=== PATIENT | female | born 1970 | race Caucasian/White ===

== ENCOUNTER 2017-08-23 08:05 | Day surgery (SDC) | payer OTHER ==
[~2017-08-23] VITALS: Ht 163.8 cm; Wt 67.1 kg
[~2017-08-23 08:05] MED LIST: PANT40TA2 PO
[2017-08-23] MEDS ORDERED: FAMOTIDINE 20MG/2ML IV (PEPCID) ONE (08:29)
[2017-08-23] MEDS ORDERED: FAMOTIDINE 20MG/2ML IV (PEPCID) IV ONE (08:30)
[2017-08-23] MEDS ORDERED: BUPIVACAINE 0.25% 30 ML (SENSORCAINE) VIAL ONE (08:33)
[2017-08-23] MEDS: LACTATED RINGERS 1,000 ML IV PRN ×2 (08:46→10:45)
[2017-08-23 08:52] VITALS: BP 118/74
[2017-08-23] MEDS ORDERED: LACTATED RINGERS 1,000 ML IV ONE ×2 (09:43→10:50)
[2017-08-23] MEDS ORDERED: proPOfol 200 MG/20 ML (DIPRIVAN) VIAL IV ONE (09:43)
[2017-08-23] MEDS ORDERED: ROCURONIUM 50 MG/5 ML (ZEMURON) VIAL IV ONE (09:43)
[2017-08-23] MEDS ORDERED: MIDAZOLAM 2 MG/2 ML (VERSED) VIAL ONE (09:44)
[2017-08-23] MEDS ORDERED: fentaNYL INJECTION 100 MCG/2 ML AMP ONE (09:44)
--- NOTE | 2017-08-23 09:45 | Progress Note-Pre Operative ---
Pre-Operative Progress Note H&P Reviewed The H&P was reviewed, patient examined and no changes noted. Date Seen by Provider: Aug 23, 2017 Time Seen by Provider: 09:35 Date H&P Reviewed: Aug 23, 2017 Time H&P Reviewed: 09:30 Pre-Operative Diagnosis: RLQ, history of ovarian cyst rupture. GABRIELA HENSON DO Aug 23, 2017 9:45 am
[2017-08-23] MEDS ORDERED: D5 LR IV SOLUTION 1,000 ML IV SCH (09:57)
--- NOTE | 2017-08-23 09:59 | Discharge Inst-Women's Service ---
Discharge Inst-Women's Serv Depart Medication/Instructions New, Converted or Re-Newed RX: RX on Chart Consults/Follow Up Additional Follow Up: Yes Orders/Referrals Dr. Helm in 1-2 weeks Activity Activity: Activity as Tolerated Driving Instructions: No Driving for 1 Week (do not drive while taking narocotic pain meds) NO SMOKING: NO SMOKING Nothing Inside Vagina: No Douching, No [place], No Tampons Diet Discharge Diet: No Restrictions Symptoms to Report to : Bleeding Excessive, Pain Increased, Fever Over 101 Degrees F, Vaginal Bleeding Increase, Questions/Concerns For Any Problems or Questions: Contact Your Physician Skin/Wound Care Infection Signs and Symptoms: Increased Redness, Foul Odor of Wound, Increased Drainage, Skin Itchy or Has a Rash, Increased Swelling, Temperature Above 101 F Operative Area Clean and Dry: Keep Incision Clean/Dry Stitches/[place]/Dermabond: Dermabond, Care of Stitches Bathing Instructions: GABRIELA Gilliam DO Aug 23, 2017 09:59
[2017-08-23] MEDS ORDERED: HYDROcodone/APAP 5 MG/325 MG (LORTAB) TAB PO PRN (10:00)
[2017-08-23] MEDS ORDERED: KETOROLAC 30 MG/ML VIAL IVP ONE (10:00)
[2017-08-23] MEDS ORDERED: IBUP-1773 PO (10:00)
[2017-08-23] MEDS ORDERED: HYDR-3812 PO (10:00)
[2017-08-23] MEDS ORDERED: ONDANSETRON 4 MG/2 ML (SDV) Z0FRAN IVP PRN ×2 (10:00→12:00)
[2017-08-23] MEDS ORDERED: morphine INJ 10 MG/ML 1ML (SYR OR VIAL) ONE (10:20)
[2017-08-23] MEDS ORDERED: KETOROLAC 30 MG/ML VIAL ONE (10:20)
[2017-08-23] MEDS ORDERED: DEXAMETHASONE 10 MG/ML (DECADRON) 1 ML VIAL ONE (10:49)
[2017-08-23] MEDS ORDERED: ONDANSETRON 4 MG/2 ML (SDV) Z0FRAN ONE (10:49)
[2017-08-23] MEDS ORDERED: SEVOFLURANE (ULTANE) 15 ML INHAL SOLN ONE (10:49)
[2017-08-23] MEDS ORDERED: NEOSTIGMINE (BLOXIVERZ ) 1 MG/1ML 10 ML VIAL ONE (10:50)
[2017-08-23] MEDS ORDERED: GLYCOPYRROLATE 0.2 MG/ML (ROBINUL) 2 ML VIAL ONE (10:50)
[2017-08-23] MEDS ORDERED: CATHETER FLUSH 10 ML SYR IV PRN (11:00)
[2017-08-23] MEDS ORDERED: metroNIDAZOLE 500MG/100ML IVPB 100 ML IV ONE (11:00)
--- NOTE | 2017-08-23 11:27 | Progress Note-Post Operative ---
Post-Operative Progess Note Surgeon (s)/Retail Coordinator (s) Surgeon GABRIELA HENSON DO Retail Coordinator: Raina Thorpe Pre-Operative Diagnosis RLQ, history of ovarian cyst rupture. Post-Operative Diagnosis same, Moderately inflamed appendix Adhesion of appy to right IP/Ovary Procedure & Operative Findings Date of Procedure 08/23/17 Procedure Performed/Findings Laparoscopic bilateral salpingectomy, right oophorectomy, appendectomy Anesthesia Type GETA Estimated Blood Loss Estimated blood loss (mL): min Specimens/Packing Specimens Removed bilateral tubes, right ovary and appendix GABRIELA HENSON DO Aug 23, 2017 11:27 am
[2017-08-23] MEDS: morphine INJ 10 MG/ML 1ML (SYR OR VIAL) IVP PRN ×2 (11:50→11:56)
[2017-08-23] MEDS ORDERED: IBUPROFEN 600 MG (MOTRIN) TAB PO SCH (12:00)
[2017-08-23 12:25] VITALS: BP 115/66
[2017-08-23 12:55] VITALS: BP 98/69
[2017-08-23 13:15] VITALS: BP 104/68
[2017-08-23 13:25] VITALS: BP 104/68
--- NOTE | 2017-08-23 15:00 | OPERATIVE REPORT ---
DATE OF SERVICE: 08/23/2017 PREOPERATIVE DIAGNOSIS: Right lower quadrant pain. POSTOPERATIVE DIAGNOSIS: Right lower quadrant pain, plus adhesions on the right ovary to the pelvic sidewall and adhesion of the appendix to the infundibulopelvic ligament and right ovary. PROCEDURE: Laparoscopic bilateral salpingectomy, right oophorectomy and appendectomy performed by Dr. Pelayo. SURGEON: Dr. Ace Helm. STEAM PLANT CONTROL ROOM OPERATOR: BESS David. SECONDARY SURGEON INTRAOPERATIVE CONSULTATION: Dr. Vadim Pelayo. ANESTHESIA: General endotracheal. ESTIMATED BLOOD LOSS: Minimal. URINE OUTPUT: 100 mL during the procedure. FLUIDS: 1200 mL of lactated Ringer's solution. FINDINGS: Grossly normal left ovary, bilateral fallopian tubes. There is evidence of previous tubal ligation, right ovary which is adhesed to pelvic sidewall, as well as evidence of scarring of the right ovary to the infundibulopelvic ligament and the appendix, which is scarred in the same adnexal complex. There is some erythema and a mild amount of dilation of the distal appendix. INDICATION FOR PROCEDURE: This 47-year-old female was a self consultation to my office for ongoing issues with right lower quadrant pain that brought her into the Emergency Department. The patient underwent imaging which showed a small cyst in the right ovary, nothing that would indicate surgery from that standpoint; however, she did give a history of multiple pelvic surgeries undergone including a ruptured right hemorrhagic ovarian cyst, as well as a history of a right ectopic . Due to the possibility of underlying adhesions causing this pain, I discussed with the patient performing a diagnostic laparoscopy as imaging studies have been limited in giving us any answers for her pain. Risks of the procedure was discussed with the patient including the risk of bleeding, infection, damage to any surrounding structures including but not limited bowel, bladder, ureter, kidneys, risks for need for blood transfusion, need for operation and even were all discussed with the patient. After all of her questions were answered, consent was obtained in the preoperative area with her present, and the patient was taken to the operating room. DESCRIPTION OF PROCEDURE: Once in the operating room general anesthesia was found to be adequate. She was placed in the dorsal lithotomy position, prepped and draped in the normal sterile fashion. She was first examined under anesthesia. The uterus was mildly enlarged, freely mobile. It was difficult to palpate the ovaries on bimanual examination. Luque catheter was placed using sterile technique. A weighted speculum was then inserted in to the patient's vagina. A right angle retractor was used to visualize the cervix which was grasped at the 12 o'clock position using a long Allis clamp. The uterine cavity was then sounded and found to be 8 cm. I then placed a Kronner uterine manipulator at 8 cm cavity depth and deployed the balloon intrauterine and excellent uterine manipulation was noted after doing this. I then performed a change of gloves and took all the instruments out of the patient's vagina other than the Kronner uterine manipulator. I took my attention to the abdomen where infraumbilically I infiltrated this area using 0.25% Marcaine to make a 5 mm incision. I then directed the Veress needle through this incision until intraperitoneal placement was confirmed using the saline drop test. I proceeded with insufflation using CO2 gas and an opening pressure of 5 mmHg was noted. I proceeded to a maximum pressure of 15 mmHg, at which point I removed with Veress needle and introduced an 8 mm blunt da Matty camera trocar. Once this was in place, I was able to confirm all intraperitoneal findings after the patient was placed in steep Trendelenburg. The findings are listed above in my findings. I then placed in the patient a second trocar in the left lower quadrant. This was a 5 mm trocar and suprapubically I placed a 12 mm trocar in the similar fashion. Once these were in place, I began taking down the fallopian tubes starting proximally at insertion isthmic portion of the tube and took it distally to the ampullary portion of the tube using LigaSure device to bipolar cauterize and transect as I go. I then identified the right infundibulopelvic ligament. I had to take down some adhesions of the appendix to this but once they were taken down I grasped the IP using the LigaSure and bipolar cauterized and transected using the LigaSure. The mesovarium was taken down in a similar fashion and the utero-ovarian ligament was last to be encountered, but it was taken down using the LigaSure as well. This was placed in the posterior cul-de-sac for later removal as I took my attention to the appendix which appeared to be moderately inflamed and a small amount of dilation at the tip I then intraoperative counseled Dr. Pelayo who came in and performed an appendectomy. I then placed an endopouch bag through my suprapubic port and placed the appendix, bilateral tubes and ovaries in this endopouch bag and removed the 12 mm port without any difficulty. There was no active bleeding noted from any of my dissection planes or Dr. Pelayo's dissection planes after this was performed. I copiously irrigated the pelvis using normal saline. There was 500 mg of Flagyl given intraoperatively for infection prophylaxis due to removal of a bowel structure, after which I removed the smaller 5 mm trocar sites under direct visualization with the laparoscope. There was no active bleeding from these trocar sites. I left the 12 in to release insufflation and had the patient taken out of steep Trendelenburg. I then removed the trocar as well and closed the fascia with a larger trocar that was suprapubic using 0 Vicryl suture in an interrupted fashion. The skin was reapproximated using 4-0 Monocryl and interrupted subcuticular stitches. Dermabond was applied to all three incisions and Band-Aids were placed over this. The Kronner uterine manipulator and Luque catheter was removed. Band-Aids were placed over the incisions. The patient tolerated the procedure well and was sent to recovery in stable condition. Lap and sponge counts were correct at the end of the procedure. Instrument counts were correct as well. Job ID: [id number] DocumentID: [id number] Dictated Date: 08/23/2017 11:40:26 Bunch Maker Hand Date: 08/23/2017 14:59:34 Dictated By: ACE HELM DO MTDMaria Isabel
--- NOTE | 2017-08-23 15:17 | OPERATIVE REPORT ---
DATE OF SERVICE: 08/23/2017 PREOPERATIVE DIAGNOSES: Right lower quadrant pain, appendiceal erythema and a thickened distal tip. POSTOPERATIVE DIAGNOSES: Right lower quadrant pain, appendiceal erythema and a thickened distal tip, pending pathology. PROCEDURE: Laparoscopic appendectomy. SURGEON: Dr. Pelayo. SPANISH TEACHER: None. ANESTHESIA: General endotracheal tube. SPECIMEN: Appendix. BLOOD LOSS: Scant. FLUIDS: Per anesthesia. INDICATION FOR PROCEDURE: The patient is actually a 39-year-old female. Had an intraoperative consult by Dr. Helm regarding the appendix. He reports to me that she had had long-term right lower quadrant pain and he was taking out the ovary, had already removed it, and found that the appendix was very stuck down in the pelvis, also looked a little bit erythematous and possibly a thickened distal tip and he thought it probably needed to come out and therefore called me to take a look. I did agree with him that it was a little bit erythematous and the tip was a little bit thickened, plus because of the right lower quadrant pain so she would not have to come back in or at least known now it could be her appendix causing the problem. I elected to take out the appendix. FINDINGS: The patient had the appendix removed without any difficulty. PROCEDURE NOTE: The patient was already in the operating room, called in for intraoperative consult. There were already [address], able to grasp the appendix with a [place] and then come across the mesoappendix with the LigaSure, clamping, coagulating and transecting in this fashion step-estrella working through the mesoappendix, taking down the appendiceal artery and then freeing the appendix up so it was just attached to the cecum. Once this was done, switched to place the Endo-CYNTHIA into the abdomen, placed across the base of the appendix right at the cecum, clamped and then transected, placed the staple line and then removed this Endo-CYNTHIA. Then placed the appendix into a bag and then Dr. Helm put the ovary in the bag and then removed them both through the suprapubic port. At this time I then scrubbed out with the appendix out, Dr. Helm to finish this case. Job ID: [id number] DocumentID: [id number] Dictated Date: 08/23/2017 12:00:13 Clinical Nursing Manager Date: 08/23/2017 15:17:34 Dictated By: CRISTIAN PELAYO DO
== END 2017-08-23 13:25 | disposition home or self-care (01) ==
LOC: SDC 08:05
PROVIDERS: ATTEND Obstetrics & Gynecology
DX: N73.6 Female pelvic peritoneal adhesions (postinfective) (principal); K38.9 Disease of appendix, unspecified; N83.8 Other noninflammatory disorders of ovary, fallopian tube and broad ligament; N80.2 Endometriosis of fallopian tube; N83.201 Unspecified ovarian cyst, right side; K44.9 Diaphragmatic hernia without obstruction or gangrene; K21.9 Gastro-esophageal reflux disease without esophagitis; Z87.59 Personal history of other complications of pregnancy, childbirth and the puerperium
CPT/HCPCS: 36415; 84703; 86850; 86900; 86901; 87081; 94664

== ENCOUNTER → 2019-08-11 | Outpatient (CLI) | payer OTHER ==
[~2019-08-11] MED LIST changes: +ACHD5005 PO; +IBUP-1773 PO
--- NOTE | 2019-08-11 10:04 | Diagnostic Imaging Report ---
INDICATION: Injury to right hand. AP, oblique, and lateral views of the right hand are obtained. FINDINGS: No fracture or acute bony abnormality is seen. There is mild degenerative change of the first MCP joint and carpometacarpal joint. Remaining structures are unremarkable otherwise. IMPRESSION: Mild degenerative findings in the first MCP joint and carpometacarpal joint. No acute bony abnormality. Dictated by: Dictated on workstation # [id number]
== END ==
LOC: RAD FS 09:46
PROVIDERS: ATTEND Nurse Practitioner Family
DX: S69.91XA Unspecified injury of right wrist, hand and finger(s), initial encounter (principal); M19.041 Primary osteoarthritis, right hand
CPT/HCPCS: 73130

== ENCOUNTER 2020-06-06 10:13 | Emergency (ER) | payer OTHER ==
[~2020-06-06] VITALS: Ht 165 cm; Wt 67.1 kg
--- OUTSIDE RECORDS SUMMARY | 2020-06-06 10:18 | XMS REPORT | Continuity of Care Document ---
Author Organization Unknown Address Unknown Phone Unavailable Allergies Active Description Code Type Severity Reaction Onset Reported/Identified Relationship to Patient Clinical Status Yes Amoxicillin Drug Allergy N/A N/A 08/15/2013 Yes Erythromycin Base Drug Allergy N/A N/A 08/15/2013 Yes Keflex Drug Allergy N/A N/A 08/15/2013 Yes cephalexin [id number] Drug Allerg y Severe ANAPHYLAXIS 08/20/2017 Yes amoxicillin [id number] Drug Aller gy Moderate RASH 08/20/2017 Yes erythromycin base [id number] Drug Allergy Moderate N/V 08/20/2017 Medications There is no data. Problems Date Dx Coded Attending Type Code Diagnosis Diagnosed By 08/15/2013 ZOHREH COOPER DO 789.00 ABDOMINAL PAIN UNSPECIFIED SITE 08/23/2017 GABRIELA HENSON DO Ot K21.9 GASTRO-ESOPHAGEAL REFLUX DISEASE WITHOUT 08/23/2017 GABRIELA HENSON DO Ot K38.9 DISEASE OF APPENDIX, UNSPECIFIED 08/23/2017 GABRIELA HENSON DO, Ot K44.9 DIAPHRAGMATIC HERNIA WITHOUT OBSTRUCTION 08/23/2017 GABRIELA HENSON DO Ot N73.6 FEMALE PELVIC PERITONEAL ADHESIONS (POST 08/23/2017 GABRIELA HENSON DO Ot N80.2 ENDOMETRIOSIS OF FALLOPIAN TUBE 08/23/2017 GABRIELA HENSON DO Ot N83.201 UNSPECIFIED OVARIAN CYST, RIGHT SIDE 08/23/2017 GABRIELA HENSON DO Ot N83.8 OTH NONINFLAMMATORY DISORD OF OVARY, FAL 08/23/2017 GABRIELA HENSON DO Ot Z87.59 PERSONAL HISTORY OF COMP OF PREG, CHLDBR 08/27/2017 GABRIELA HENSON DO Ot K21.9 GASTRO-ESOPHAGEAL REFLUX DISEASE WITHOUT 08/27/2017 GABRIELA HENSON DO Ot K38.9 DISEASE OF APPENDIX, UNSPECIFIED 08/27/2017 GABRIELA HENSON DO Ot K44.9 DIAPHRAGMATIC HERNIA WITHOUT OBSTRUCTION 08/27/2017 GABRIELA HENSON DO Ot 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.6 FEMALE PELVIC PERITONEAL ADHESIONS (POST 08/27/2017 FENECH DO, GABRIELA S Ot N80.2 ENDOMETRIOSIS OF FALLOPIAN TUBE 08/27/2017 FENECH DO, GABRIELA S Ot N83.201 UNSPECIFIED OVARIAN CYST, RIGHT SIDE 08/27/2017 FENECH DO, GABRIELA S Ot N83.8 OTH NONINFLAMMATORY DISORD OF OVARY, FAL 08/27/2017 FENECH DO, GABRIELA S Ot Z87.59 PERSONAL HISTORY OF COMP OF PREG, CHLDBR 08/29/2017 FENECH DO, GABRIELA S Ot K21.9 GASTRO-ESOPHAGEAL REFLUX DISEASE WITHOUT 08/29/2017 FENECH DO, GABRIELA S Ot K38.9 DISEASE OF APPENDIX, UNSPECIFIED 08/29/2017 FENECH DO, GABRIELA S Ot K44.9 DIAPHRAGMATIC HERNIA WITHOUT OBSTRUCTION 08/29/2017 FENECH DO, GABRIELA S Ot N73.6 FEMALE PELVIC PERITONEAL ADHESIONS (POST 08/29/2017 FENECH DO, GABRIELA S Ot N80.2 ENDOMETRIOSIS OF FALLOPIAN TUBE 08/29/2017 FENECH DO, GABRIELA S Ot N83.201 UNSPECIFIED OVARIAN CYST, RIGHT SIDE 08/29/2017 FENECH DO, GABRIELA S Ot N83.8 OTH NONINFLAMMATORY DISORD OF OVARY, FAL 08/29/2017 FENECH DO, GABRIELA S Ot Z87.59 PERSONAL HISTORY OF COMP OF PREG, CHLDBR 09/17/2017 FENECH DO, GABRIELA S Ot K21.9 GASTRO-ESOPHAGEAL REFLUX DISEASE WITHOUT 09/17/2017 FENECH DO, GABRIELA S Ot K38.9 DISEASE OF APPENDIX, UNSPECIFIED 09/17/2017 FENECH DO, GABRIELA S Ot K44.9 DIAPHRAGMATIC HERNIA WITHOUT OBSTRUCTION 09/17/2017 FENECH DO, GABRIELA S Ot N73.6 FEMALE PELVIC PERITONEAL ADHESIONS (POST 09/17/2017 FENECH DO, GABRIELA S Ot N80.2 ENDOMETRIOSIS OF FALLOPIAN TUBE 09/17/2017 FENECH DO, GABRIELA S Ot N83.201 UNSPECIFIED OVARIAN CYST, RIGHT SIDE 09/17/2017 FENECH DO, GABRIELA S Ot N83.8 OTH NONINFLAMMATORY DISORD OF OVARY, FAL 09/17/2017 FENECH DO, GABRIELA S Ot Z87.59 PERSONAL HISTORY OF COMP OF PREG, CHLDBR 08/13/2019 LIBIA NOYOLA PADDLE DYEING MACHINE OPERATOR Ot M19.041 PRIMARY OSTEOARTHRITIS, RIGHT HAND 08/13/2019 LIBIA NOYOLA PADDLE DYEING MACHINE OPERATOR Ot S69.91XA UNSP INJURY OF RIGHT WRIST, HAND AND FIN Procedures Code Description [place] [address] UA L MARY DIP 08/15/2013 61785 CULT URE URINE 08/15/2013 Results Test Result Range Urine beta human chorionic gonadotropin (hCG) measurement - 08/23/17 08:15 Urine beta human chorionic gonadotropin (hCG) measurem ent NEGATIVE NEGATIVE Methicillin resistant Staphylococcus aur eus (MRSA) screening culture - 08/23/17 08:30 Methicillin resistant Staphylococcus aureus (MRSA) scr eening culture NEG NRG Blood type T Indirect antibody screen pa praneeth - 08/23/17 08:39 ABO+Rh group AP NRG Transfusion band number [id number] NRG Blood group antibody screen NEGATIVE NR G Encounters ACCT No. Visit Date/Time Discharge Status Pt. Type Provider Facility Loc./Unit Complaint [id number] 08/15/2013 12:15:00 08/15/2013 23:59: 59 CLS Outpatient ZOHREH COOPER DO [id number] 08/11/2019 09:46:00 019 23:59:59 CLS Outpatient LIBIA NOYOLA PADDLE DYEING MACHINE OPERATOR [facility] RAD FS M79.641 [id number] 08/23/2017 08:05:00 017 13:25:00 DIS Outpatient GABRIELA HENSON DO [facility] SDC RIGHT LOWER QUADRANT PA IN [id number] 08/20/2017 10:00:00 017 23:59:59 CLS Preadmit GABRIELA HENSON DO [facility] PREOP RIGHT LOWER QUAD PAIN
[2020-06-06] MEDS ORDERED: LACTATED RINGERS 1,000 ML IV ONE (10:50)
[2020-06-06 11:00] LABS: BILIRUBIN,URINE NEGATIVE (NEGATIVE); CLARITY,URINE CLEAR; COLOR,URINE YELLOW; GLUCOSE, URINE (UA) NEGATIVE (NEGATIVE); KETONES,URINE NEGATIVE (NEGATIVE); LEUKOCYTE ESTERASE ,URINE NEGATIVE (NEGATIVE); NITRITE,URINE NEGATIVE (NEGATIVE); PH,URINE 5.5 (5-9); PROTEIN,URINE NEGATIVE (NEGATIVE)
[2020-06-06] MEDS ORDERED: ONDANSETRON 4 MG/2 ML (SDV) Z0FRAN IVP ONE (11:00)
--- NOTE | 2020-06-06 11:02 | ED GI ---
General Chief Complaint: Abdominal/GI Problems Stated Complaint: CONSTIPATION/BACK PAIN Nursing Triage Note: PT PRESENTS TO ED WITH COMPLAINTS OF R LEG NUMBNESS AND CONSTIPATION. PT REPORTS LAST BM ON 06/01/20. PT REPORTS MAG CITRATE AND 3 ENEMAS SINCE SUNDAY. Sepsis Screen: No Definite Risk Source of Information: Patient History of Present Illness Date Seen by Provider: Jun 06, 2020 Time Seen by Provider: 10:40 Initial Comments PT ARRIVES VIA POV FROM HOME--LIVES IN [place], [place] C/O CONSTIPATION AND THINKS SHE HAS AN IMPACTION--HAS NOT HAD A BM IN A WEEK STATES SINCE Sunday06/03/20, SHE HAS DRANK 1 BOTTLE OF MAG CITRATE, AND USED A TOTAL OF 3 ENEMAS--ONLY PASSED VERY SMALL AMOUNTS OF STOOL C/O DIFFUSE LOWER ABDOMINAL DISCOMFORT C/O NAUSEA, NO VOMITING--HAS BEEN EATING AND DRINKING NORMALLY C/O LOWER BACK PAIN--STATES IT FEELS LIKE IT IS PRESSING ON HER SCIATIC NERVES, AND HAS PAIN DOWN THE BACK OF BOTH LEGS, AND TODAY HER RIGHT LEG FEELS NUMB AND TINGLY NO SADDLE ANESTHESIAS NO PROBLEMS URINATING C/O RIGHT FLANK PAIN WELL. NO FEVER NO RECTAL BLEEDING HAS HAD SIMILAR, JUST NEVER THIS BAD--HAS CHRONIC CONSTIPATION, BUT DOES NOT TAKE ANYTHING FOR IT HAS HAD PREVIOUS HEMORRHOIDECTOMY AND HAS BEEN DX WITH RECTOCOELE, BUT NO SURGICAL REPAIR OF RECTOCOELE--SAW A COLORECTAL SPECIALIST IN 3-4 YRS AGO. LATER STATES SHE HAS HAD TESTING FOR GASTRIC AND GI TRANSIT TIMES AND STATES THAT IT WAS VERY SLOW TRANSIT TIME. HAS CHRONIC BACK PAIN WELL. PT DOES NOT TAKE ANY MEDICATIONS LMP 05/29/20. S/P BTL PCP: CHAVO MORENO Allergies and Home Medications Allergies Coded Allergies: cephalexin (Verified Allergy, Severe, ANAPHYLAXIS, 08/20/17) amoxicillin (Verified Allergy, Intermediate, RASH, 08/20/17) erythromycin base (Verified Allergy, Intermediate, N/V, 08/20/17) Home Medications Hydrocodone Bit/Acetaminophen 1 Each Tablet, 1 TAB PO Q4H PRN for PAIN-MODERATE Prescribed by: GABRIELA HENSON on 08/23/17 1000 Ibuprofen 600 Mg Tablet, 600 MG PO Q6HR Prescribed by: GABRIELA HENSON on 08/23/17 1000 Ketorolac Tromethamine 10 Mg Tablet, 10 MG PO Q6H Prescribed by: LENNY GARRIDO on 06/06/20 1331 Ondansetron 4 Mg Tab.rapdis, 4 MG PO Q4H Prescribed by: LENNY GARRIDO on 06/06/20 1331 Pantoprazole Sodium 40 Mg Tablet.dr, 40 MG PO DAILY, (Reported) Patient Home Medication List Home Medication List Reviewed: Yes Review of Systems Review of Systems Constitutional: no symptoms reported; No chills, No diaphoresis, No dizziness, No fever EENTM: No Symptoms Reported Respiratory: No Symptoms Reported Cardiovascular: No Symptoms Reported Gastrointestinal: See HPI, Abdominal Pain, Constipated; Denies Diarrhea; Nausea; Denies Poor Appetite, Denies Rectal Bleeding, Denies Vomiting Genitourinary: No Symptoms Reported Musculoskeletal: see HPI, back pain Skin: no symptoms reported Psychiatric/Neurological: See HPI, Paresthesia, Tingling; Denies Weakness Endocrine: No Symptoms Reported Hematologic/Lymphatic: No Symptoms Reported Past Vqcohoq-Lsktrm-Nkfymm Hx Past Med/Social Hx: Reviewed and Corrections made Patient Social History Alcohol Use: Occasionally Uses Recreational Drug Use: No Smoking Status: Never a Smoker Recent Foreign Travel: No Contact w/Someone Who Travel: No Recent Infectious Disease Expo: No Recent Hopitalizations: No Physical Abuse: No Sexual Abuse: No Mistreated: No Fear: No Seasonal Allergies Seasonal Allergies: Yes (MILD) Past Medical History Surgeries: Yes (R SHOULDER, HEMORRHOIDECTOMY, R SALPINGO-OOPORECTOMY;R BREAST BX) Appendectomy, Breast, Oophorectomy, Orthopedic, Rectal, Tubal Ligation Respiratory: No 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) Irregular Heartbeat Neurological: Yes Headaches /Migraines Reproductive Disorders: Yes (R SALPINGO-OOPHORECTOMY) Female Reproductive Disorders: Menstrual Problems, 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, 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: Tubal Ligation Sexually Transmitted Disease: No HIV/AIDS: No Genitourinary: No Gastrointestinal: Yes (RECTOCOELE) Gastroesophageal Reflux, Chronic Constipation, Hemorrhoids, Hiatal Hernia Musculoskeletal: Yes (R SHOULDER SURGERY) Arthritis, Chronic Back Pain Endocrine: No Loss of Vision: Bilateral Hearing Impairment: Denies Cancer: No Psychosocial: No Integumentary: No Blood Disorders: No Adverse Reaction/Blood Tranf: No Physical Exam Vital Signs Vital Signs - First Documented 06/06/20 10:36 Temp 36.6 Pulse 81 Resp 20 B/P (MAP) 114/83 (93) Pulse Ox 99 Capillary Refill : Less Than 3 Seconds Height/Weight/BMI Height: 5'4.50" Weight: 148lbs. 0.0oz. [id number]; 24.00 BMI Method: General Appearance: WD/WN, no apparent distress Neck: normal inspection Respiratory: normal breath sounds, no respiratory distress, no accessory muscle use Cardiovascular: regular rate, rhythm, no murmur Gastrointestinal: normal bowel sounds, soft, no organomegaly, no pulsatile mass; No distended, No guarding, No rebound; tenderness (MILD SUPRAPUBIC TENDERNESS); No hernia Extremities: normal inspection Back: CVA tenderness (R), other (MID DIFFUSE LOWER BACK TENDERNESS. 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, no motor/sensory deficits, alert, normal mood/affect, oriented x 3 Skin: normal color, warm/dry Progress/Results/Core Measures Results/Orders Lab Results Laboratory Tests Test 06/06/20 10:49 06/06/20 11:14 Range/Units Urine Color YELLOW Urine Clarity CLEAR Urine pH 5.5 5-9 Urine Specific [place] 1.025 H 1.016-1.022 Urine Protein NEGATIVE NEGATIVE Urine Glucose (UA) NEGATIVE NEGATIVE Urine Ketones NEGATIVE NEGATIVE Urine Nitrite NEGATIVE NEGATIVE Urine Bilirubin NEGATIVE NEGATIVE Urine Urobilinogen 0.2 < = 1.0 MG/DL Urine Leukocyte Esterase NEGATIVE NEGATIVE Urine RBC (Auto) NEGATIVE NEGATIVE Urine RBC NONE /HPF Urine WBC NONE /HPF Urine Squamous Epithelial Cells 2-5 /HPF Urine Crystals NONE /LPF Urine Bacteria NEGATIVE /HPF Urine Casts NONE /LPF Urine Mucus NEGATIVE /LPF Urine Culture Indicated NO Urine Test NEGATIVE NEGATIVE White Blood Count 5.7 4.3-11.0 10^3/uL Red Blood Count 4.57 4.35-5.85 10^6/uL Hemoglobin 13.6 11.5-16.0 G/DL Hematocrit 41 35-52 % Mean Corpuscular Volume 89 80-99 FL Mean Corpuscular Hemoglobin 30 25-34 PG Mean Corpuscular Hemoglobin Concent 33 32-36 G/DL Red Cell Distribution Width 13.0 10.0-14.5 % Platelet Count 293 130-400 10^3/uL Mean Platelet Volume 10.9 H 7.4-10.4 FL Neutrophils (%) (Auto) 50 42-75 % Lymphocytes (%) (Auto) 35 12-44 % Monocytes (%) (Auto) 11 0-12 % Eosinophils (%) (Auto) 3 0-10 % Basophils (%) (Auto) 1 0-10 % Neutrophils # (Auto) 2.9 1.8-7.8 X 10^3 Lymphocytes # (Auto) 2.0 1.0-4.0 X 10^3 Monocytes # (Auto) 0.6 0.0-1.0 X 10^3 Eosinophils # (Auto) 0.2 0.0-0.3 10^3/uL Basophils # (Auto) 0.1 0.0-0.1 10^3/uL Sodium Level 139 135-145 MMOL/L Potassium Level 3.8 3.6-5.0 MMOL/L Chloride Level 106 98-107 MMOL/L Carbon Dioxide Level 23 21-32 MMOL/L Anion Gap 10 5-14 MMOL/L Blood Urea Nitrogen 8 7-18 MG/DL Creatinine 0.83 0.60-1.30 MG/DL Estimat Glomerular Filtration Rate > 60 BUN/Creatinine Ratio 10 Glucose Level 90 70-105 MG/DL Calcium Level 9.0 8.5-10.1 MG/DL Corrected Calcium 9.0 8.5-10.1 MG/DL Magnesium Level 2.0 1.6-2.4 MG/DL Total Bilirubin 0.8 0.1-1.0 MG/DL Aspartate Amino Transf (AST/SGOT) 18 5-34 U/L Alanine Aminotransferase (ALT/SGPT) 20 0-55 U/L Alkaline Phosphatase 49 40-136 U/L Total Protein 7.4 6.4-8.2 GM/DL Albumin 4.0 3.2-4.5 GM/DL Amylase Level 45 25-125 U/L Lipase 10 8-78 U/L My Orders Orders - LENNY GARRIDO DO Ed Iv/Invasive Line Start (06/06/20 10:50) Urine Bedside (06/06/20 10:50) Amylase (06/06/20 10:50) Cbc With Automated Diff (06/06/20 10:50) Comprehensive Metabolic Panel (06/06/20 10:50) Lipase (06/06/20 10:50) Magnesium (06/06/20 10:50) Ua Culture If Indicated (06/06/20 10:50) Ed Iv/Invasive Line Start (06/06/20 10:50) Lactated Ringers (Lr 1000 Ml Iv Solution (06/06/20 10:50) Ondansetron Injection (Zofran Injectio (06/06/20 11:00) Hcg,Qualitative Urine (06/06/20 10:55) Ct Abdomen/Pelvis W (06/06/20 11:46) Acute Abd Series (06/06/20 11:46) Ketorolac Injection (Toradol Injection) (06/06/20 12:00) Ct Lumbar Spine Wo (06/06/20 11:50) Iohexol Injection (Omnipaque 350 Mg/Ml 1 (06/06/20 12:45) Received Contrast (Hold Metformin- Contr (06/06/20 12:45) Ns (Ivpb) (Sodium Chloride 0.9% Ivpb Bag (06/06/20 12:45) Medications Given in ED Vital Signs/I&O 06/06/20 06/06/20 10:36 13:39 Temp 36.6 Pulse 81 77 Resp 20 20 B/P (MAP) 114/83 (93) 114/76 Pulse Ox 99 100 2 Blood Pressure Mean: 93 Progress Progress Note : Progress Note UNEVENTFUL ER STAY SYMPTOMS IMPROVED AT DISMISSAL--NAUSEA AND PAIN ARE COMPLETELY GONE. Diagnostic Imaging Comments CT ABDOMEN/PELVIS--PER RADIOLOGIST REPORTS AT 1315 Discussion: The lung bases are well-aerated. Normal heart size. No pleural or pericardial fluid. The liver, gallbladder, pancreas, stomach, spleen, and adrenal glands are unremarkable. No renal stone or hydronephrosis identified. Ureters are patent on delayed images. Urinary bladder and uterus are unremarkable. No significant constipation. No obstruction, pneumatosis, pneumoperitoneum. No ascites or pathologically enlarged lymph nodes identified. The aorta is normal in caliber. No osseous abnormality identified. Impression: 1. No acute abnormality identified within either the abdomen or pelvis. CT LUMBAR SPINEImpression: 1. Disc degenerative changes of the lumbar spine most notable at L4-L5. CT is limited for assessment of disc pathology as well as for evaluation of nonbony causes of foraminal and spinal stenosis. 2. No identified compression deformity or other fracture. 3. Normal alignment of the lumbar spine. ABDOMEN XRAYS--NO ACUTE PROCESS Reviewed: Reviewed by Departure Impression Primary Impression: Constipation Additional Impression: Lower back pain Disposition: HOME, SELF-CARE Condition: Improved Departure-Patient Inst. Referrals: [facility] (PCP) Primary Care Physician LIBIA NOYOLA APRN (Family) Primary Care Physician Patient Instructions: Constipation, Adult (DC), Low Back Pain (DC) Add. Discharge Instructions: INCREASE YOUR CLEAR LIQUIDS INCREASE FIBER IN YOUR DIET TAKE MIRALAX EVERY 1-2 HOURS UNTIL YOUR STOOLS ARE LOOSE, THEN DECREASE TO ONCE OR TWICE A DAY, TOLERATED FOLLOW UP WITH YOUR DR NEXT WEEK FOR FURTHER CARE All discharge instructions reviewed with patient and/or family. Voiced understanding. Scripts Ketorolac Tromethamine (Ketorolac Tromethamine) 10 Mg Tablet 10 MG PO Q6H for Pain, #15 TAB Prov: LENNY GARRIDO DO 06/06/20 Ondansetron (Ondansetron Odt) 4 Mg Tab.rapdis 4 MG PO Q4H for Nausea/Vomiting, #10 TAB Prov: LENNY GARRIDO DO 06/06/20 LENNY GARRIDO DO Jun 06, 2020 11:02
[2020-06-06 11:06] LABS: BACTERIA,URINE NEGATIVE /HPF
[2020-06-06 11:23] LABS: BASOPHILS # (AUTO) 0.1 10^3/uL (0.0-0.1); BASOPHILS % (AUTO) 1 % (0-10); EOSINOPHILS # (AUTO) 0.2 10^3/uL (0.0-0.3); EOSINOPHILS % (AUTO) 3 % (0-10); HEMATOCRIT 41 % (35-52); HEMOGLOBIN 13.6 G/DL (11.5-16.0); LYMPHOCYTES % (AUTO) 35 % (12-44); MEAN CORPUSCULAR HEMOGLOBIN 30 PG (25-34); MEAN CORPUSCULAR HGB CONC 33 G/DL (32-36); MEAN CORPUSCULAR VOLUME 89 FL (80-99); MEAN PLATELET VOLUME 10.9 FL (7.4-10.4); MONOCYTES # (AUTO) 0.6 X 10^3 (0.0-1.0); MONOCYTES % (AUTO) 11 % (0-12); NEUTROPHILS # (AUTO) 2.9 X 10^3 (1.8-7.8); NEUTROPHILS % (AUTO) 50 % (42-75); PLATELET COUNT 293 10^3/uL (130-400); WHITE BLOOD COUNT 5.7 10^3/uL (4.3-11.0)
[2020-06-06 11:35] LABS: CHLORIDE 106 MMOL/L (98-107); POTASSIUM 3.8 MMOL/L (3.6-5.0); SODIUM 139 MMOL/L (135-145)
[2020-06-06 11:37] LABS: GLUCOSE 90 MG/DL (70-105); TOTAL PROTEIN 7.4 GM/DL (6.4-8.2)
[2020-06-06 11:38] LABS: AMYLASE 45 U/L (25-125); CARBON DIOXIDE 23 MMOL/L (21-32)
[2020-06-06 11:39] LABS: BILIRUBIN,TOTAL 0.8 MG/DL (0.1-1.0)
[2020-06-06 11:40] LABS: ALKALINE PHOSPHATASE 49 U/L (40-136)
[2020-06-06 11:41] LABS: CREATININE SERUM 0.83 MG/DL (0.60-1.30); GFR ESTIMATED > 60
[2020-06-06 11:42] LABS: BUN/CREATININE RATIO 10
[2020-06-06 11:44] LABS: ALANINE AMINOTRANSFERASE 20 U/L (0-55)
[2020-06-06 11:47] LABS: LIPASE 10 U/L (8-78)
[2020-06-06] MEDS ORDERED: KETOROLAC 30 MG/ML VIAL IVP ONE (12:00)
[2020-06-06] MEDS ORDERED: IOHEXOL 350 MG/ML 100 ML (OMNIPAQUE 350) VIAL IV ONE (12:45)
[2020-06-06] MEDS ORDERED: NS 100 ML (IVPB) BAG IV ONE (12:45)
[2020-06-06] MEDS ORDERED: HOLD METFORMIN - RECEIVED CONTRAST 20 ML VIAL IV SCH (12:45)
--- NOTE | 2020-06-06 12:51 | Diagnostic Imaging Report ---
PROCEDURE: CT abdomen and pelvis with contrast. TECHNIQUE: Multiple contiguous axial images were obtained through the abdomen and pelvis after administration of intravenous contrast. Auto Exposure Controls were utilized during the CT exam to meet ALARA standards for radiation dose reduction. Indication: Abdominal pain with constipation. Comparison: None. Discussion: The lung bases are well-aerated. Normal heart size. No pleural or pericardial fluid. The liver, gallbladder, pancreas, stomach, spleen, and adrenal glands are unremarkable. No renal stone or hydronephrosis identified. Ureters are patent on delayed images. Urinary bladder and uterus are unremarkable. No significant constipation. No obstruction, pneumatosis, pneumoperitoneum. No ascites or pathologically enlarged lymph nodes identified. The aorta is normal in caliber. No osseous abnormality identified. Impression: 1. No acute abnormality identified within either the abdomen or pelvis. Dictated by: Dictated on workstation # [id number]
--- NOTE | 2020-06-06 12:55 | Diagnostic Imaging Report ---
PROCEDURE: CT lumbar spine without contrast. TECHNIQUE: Multiple contiguous axial images were obtained through the lumbar spine without the use of intravenous contrast. Sagittal and coronal reformations were then performed. Auto Exposure Controls were utilized during the CT exam to meet ALARA standards for radiation dose reduction. Date: June 06, 2020. Indication: 49-year-old female, low back pain. Right leg numbness. Comparison: None. Findings: The alignment of the lumbar spine is unremarkable. There is no identified pars interarticularis defect. There is no identified compression deformity or fracture. The disc heights are well preserved. There are endplate degenerative changes most notable adjacent L4-L5. CT is limited for assessment of disc pathology as well as additional nonbony causes of pathology in the spinal canal. The facet joints are unremarkable. Unremarkable appearance of the bilateral sacroiliac joints. Impression: 1. Disc degenerative changes of the lumbar spine most notable at L4-L5. CT is limited for assessment of disc pathology as well as for evaluation of nonbony causes of foraminal and spinal stenosis. 2. No identified compression deformity or other fracture. 3. Normal alignment of the lumbar spine. Dictated by: Dictated on workstation # [id number]
--- NOTE | 2020-06-06 13:02 | Diagnostic Imaging Report ---
EXAMINATION: Abdominal radiographs, acute series. DATE: June 06, 2020. CLINICAL INDICATION: 49-year-old female, constipation. COMPARISON: CT abdomen pelvis June 06, 2020. COMMENTS: Heart size and mediastinal contours are unremarkable. There is no identified pneumothorax, large pleural effusion, or focal airspace consolidation. There is contrast in the urinary collecting systems relating to recent administration of contrast. There are no abnormally distended gas-filled segments of bowel. There are multiple pelvic calcifications compatible with phleboliths. IMPRESSION: 1. No radiographically apparent acute cardiopulmonary abnormality. Dictated by: Dictated on workstation # [id number]
[2020-06-06] MEDS ORDERED: KETO10TA PO (13:31)
[2020-06-06] MEDS ORDERED: ONDA4TAB11 PO (13:31)
[2020-06-06 13:39] VITALS: BP 114/76
== END 2020-06-06 13:39 | disposition home or self-care (01) ==
LOC: EDUNIT# 10:13 → ER 10:14
DX: K59.00 Constipation, unspecified (principal); M54.5 Low back pain; G43.909 Migraine, unspecified, not intractable, without status migrainosus; K21.9 Gastro-esophageal reflux disease without esophagitis; G89.29 Other chronic pain; M54.9 Dorsalgia, unspecified; Z79.891 Long term (current) use of opiate analgesic; Z88.1 Allergy status to other antibiotic agents; Z88.0 Allergy status to penicillin
CPT/HCPCS: 36415; 72131; 74022; 74177; 80053; 81000; 82150; 83690; 83735; 84703; 85025

== ENCOUNTER → 2021-02-11 | Outpatient (CLI) | payer OTHER ==
[~2021-02-11] MED LIST changes: +KETO10TA PO; +ONDA4TAB11 PO
--- NOTE | 2021-02-11 14:26 | Diagnostic Imaging Report ---
PROCEDURE: US Non-ob pelvis comp/trans. TECHNIQUE: Multiple realtime grayscale images were obtained of the pelvis in various projections endovaginally. Transabdominal imaging was also performed. INDICATION: Abnormal uterine bleeding. History of right oophorectomy. COMPARISON: 06/06/2020. FINDINGS: Transabdominal images show an unremarkable appearance of the uterus and left ovary. No adnexal masses are seen. Transvaginal images were performed for further characterization. The uterus is anteverted and measures 8.5 x 4.6 x 6.5 cm. A focus of hypoechogenicity is seen in the uterus measuring 1.4 x 0.7 x 1.2 cm. A nabothian cyst is seen in the cervix. The endometrium measures 1.2 cm in thickness. No endometrial mass is seen. The right ovary is surgically absent. The left ovary measures 3.3 x 1.5 x 2.6 cm. Small follicles are seen in the left ovary. There is normal vascularity within the left ovary. No free fluid is seen in the pelvis. IMPRESSION: 1. Somewhat thickened endometrium without focal endometrial mass. Consider follow-up pelvic ultrasound in 1-2 cycles. 2. Small fibroid in the uterus. 3. Follicles in the left ovary. No evidence of torsion. The right ovary is surgically absent. No free fluid. Dictated by: Dictated on workstation # [id number]
== END ==
LOC: RAD 12:00
PROVIDERS: ATTEND Obstetrics & Gynecology
DX: D25.9 Leiomyoma of uterus, unspecified (principal); N83.02 Follicular cyst of left ovary; R93.89 Abnormal findings on diagnostic imaging of other specified body structures
CPT/HCPCS: 76830; 76856

== ENCOUNTER 2021-02-21 05:42 | Outpatient (CLI) | payer OTHER ==
[~2021-02-21] VITALS: Ht 165.1 cm; Wt 70.5 kg
== END 2021-02-21 16:30 | disposition home or self-care (01) ==
LOC: PREOP 05:42
PROVIDERS: ATTEND Obstetrics & Gynecology
DX: Z01.818 Encounter for other preprocedural examination (principal)

== ENCOUNTER 2021-02-28 07:28 | Day surgery (SDC) | payer OTHER ==
[2021-02-28] VITALS (11 sets, daily range): BP systolic 89–113; BP diastolic 60–98
[~2021-02-28] VITALS: Ht 165 cm; Wt 70.5 kg
[2021-02-28] MEDS ORDERED: LACTATED RINGERS 1,000 ML IV PRN (08:00)
[2021-02-28 08:02] LABS: BASOPHILS % (AUTO) 1 % (0-10); EOSINOPHILS # (AUTO) 0.2 10^3/uL (0.0-0.3); EOSINOPHILS % (AUTO) 4 % (0-10); HEMATOCRIT 41 % (35-52); HEMOGLOBIN 13.5 g/dL (11.5-16.0); LYMPHOCYTES % (AUTO) 35 % (12-44); MEAN CORPUSCULAR HEMOGLOBIN 30 pg (25-34); MEAN CORPUSCULAR HGB CONC 33 g/dL (32-36); MEAN CORPUSCULAR VOLUME 92 fL (80-99); MEAN PLATELET VOLUME 10.8 fL (9.0-12.2); MONOCYTES # (AUTO) 0.7 10^3/uL (0.0-1.0); MONOCYTES % (AUTO) 12 % (0-12); NEUTROPHILS # (AUTO) 2.7 10^3/uL (1.8-7.8); NEUTROPHILS % (AUTO) 48 % (42-75); PLATELET COUNT 317 10^3/uL (130-400); WHITE BLOOD COUNT 5.6 10^3/uL (4.3-11.0)
--- NOTE | 2021-02-28 08:44 | Progress Note-Pre Operative ---
Pre-Operative Progress Note H&P Reviewed The H&P was reviewed, patient examined and no changes noted. Date Seen by Provider: Feb 28, 2021 Time Seen by Provider: 08:45 Date H&P Reviewed: Feb 28, 2021 Time H&P Reviewed: 08:45 Pre-Operative Diagnosis: GABRIELA BURKS DO Feb 28, 2021 08:44
[2021-02-28] MEDS ORDERED: ONDANSETRON 4 MG/2 ML (SDV) Z0FRAN IVP PRN ×2 (08:45→10:00)
[2021-02-28] MEDS ORDERED: KETOROLAC 30 MG/ML VIAL IVP ONE (08:45)
[2021-02-28] MEDS ORDERED: HYDROcodone/APAP 5 MG/325 MG (LORTAB) TAB PO PRN (08:45)
[2021-02-28] MEDS ORDERED: D5 LR IV SOLUTION 1,000 ML IV SCH (08:45)
[2021-02-28] MEDS ORDERED: IBUP-1773 PO (08:46)
[2021-02-28] MEDS ORDERED: ACHD5005 PO (08:46)
--- NOTE | 2021-02-28 08:47 | Discharge Inst-Women's Service ---
Discharge Inst-Women's Serv Depart Medication/Instructions New, Converted or Re-Newed RX: RX on Chart Problems Reviewed?: Yes Consults/Follow Up Additional Follow Up: Yes Orders/Referrals Dr. Henson in 7-10 days Activity Activity: Activity as Tolerated Driving Instructions: No Driving for 1 Week NO SMOKING: NO SMOKING Nothing Inside Vagina: No Douching, No [place], No Tampons Diet Discharge Diet: No Restrictions Symptoms to Report to : Bleeding Excessive, Pain Increased, Fever Over 101 Degrees F, Vaginal Bleeding Increase, Questions/Concerns For Any Problems or Questions: Contact Your Physician GABRIELA HENSON DO Feb 28, 2021 08:47
[2021-02-28] MEDS ORDERED: BUPIVACAINE 0.25% 30 ML (SENSORCAINE) VIAL ONE (08:58)
[2021-02-28] MEDS ORDERED: fentaNYL INJ 100 MCG/2 ML AMP ONE (08:59)
[2021-02-28] MEDS ORDERED: SEVOFLURANE (ULTANE) 15 ML INHAL SOLN ONE ×2 (09:00→09:32)
[2021-02-28] MEDS ORDERED: ONDANSETRON 4 MG/2 ML (SDV) Z0FRAN ONE (09:00)
[2021-02-28] MEDS ORDERED: LIDOCAINE PF 2% 5 ML (XYLOCAINE) VIAL ONE (09:00)
[2021-02-28] MEDS ORDERED: MIDAZOLAM 2 MG/2 ML (VERSED) VIAL ONE (09:00)
[2021-02-28] MEDS ORDERED: proPOfol 200 MG/20 ML (DIPRIVAN) VIAL IV ONE (09:00)
[2021-02-28] MEDS ORDERED: GLYCOPYRROLATE 0.2 MG/ML (ROBINUL) 2 ML VIAL ONE (09:32)
[2021-02-28] MEDS ORDERED: HYDROmorphone 2 MG/ML VIAL (DILAUDID) IV ONE (10:00)
--- NOTE | 2021-02-28 12:58 | Anesthesia-General Post-Op ---
General Patient Condition Mental Status/LOC: Same as Preop Cardiovascular: Satisfactory Nausea/Vomiting: Absent Respiratory: Satisfactory Pain: Controlled Complications: Absent Post Op Complications Complications None Follow Up Care/Instructions Patient Instructions None needed. Anesthesia/Patient Condition Patient Condition Patient is doing well, no complaints, stable vital signs, no apparent adverse anesthesia problems. No complications reported per nursing. D/C home per [facility] Criteria: Yes DEJAH BARAJAS CRNA Feb 28, 2021 12:58
--- NOTE | 2021-02-28 14:59 | OPERATIVE REPORT ---
DATE OF SERVICE: 02/28/2021 PREOPERATIVE DIAGNOSIS: A 50-year-old female with abnormal uterine bleeding. POSTOPERATIVE DIAGNOSIS: A 50-year-old female with abnormal uterine bleeding. PROCEDURE: D and C. SURGEON: Gabriela Henson DO ANESTHESIA: LMA general. ESTIMATED BLOOD LOSS: Minimal. URINE OUTPUT: 50 mL clear at the start of the procedure. FLUIDS: 1000 mL of lactated Ringer's solution. FINDINGS: Grossly normal-appearing external female genitalia. Normal-appearing uterus on gross inspection and bimanual examination. SPECIMEN SENT: Endometrial curettings. INDICATIONS FOR PROCEDURE: This 50-year-old female patient who is consulted to me from the [facility] in [facility] for abnormal bleeding pattern. She has had a thickened endometrium on ultrasound. In the preoperative discussion and consultation, we discussed with the patient, both diagnostic and potential therapeutic measures that a D and C would offer versus endometrial biopsy in the office. She and I both agree to get the D and C was better option for her. After all of her questions were answered and risks were reviewed with the patient, consent was obtained in the preoperative area, the patient was taken to the operating room. OPERATIVE REPORT IN DETAIL: Once in the operating room, anesthesia was found to be adequate. She was placed in dorsal lithotomy position, prepped and draped in normal sterile fashion. Timeout was performed. I then drained the bladder using straight catheterization. Weighted speculum was inserted to the patient's vagina. Right angle retractor was used to visualize the cervix, which was grasped at 12 o'clock position using a long Allis clamp. I then gently sound the uterine cavity, depth was found to be 8 cm. I then gently dilated the cervix using Hanks dilators to maximum dilatation approximately 1 cm, at which point I performed a gentle curettage of the endometrium until a gentle uterine cry is appreciated in all aspects of the endometrial cavity. All of the tissue collected and sent together as endometrial curettings, after which no active bleeding noted from any of my dissection planes. A paracervical block was performed at 3 and 9 o'clock positions on the cervix. Care was taken to aspirate for injecting 5 mL of 0.25% Marcaine are injected into each site. The patient tolerated the procedure well and sent to recovery in stable condition. Lap and sponge counts were correct at the end of procedure. Instrument counts correct as well. Job ID: [id number] DocumentID: [id number] Dictated Date: 02/28/2021 10:30:10 Tax Examiner Date: 02/28/2021 14:58:47 Dictated By: GABRIELA HENSON DO
== END 2021-02-28 11:50 | disposition home or self-care (01) ==
LOC: SDC 07:28
PROVIDERS: ATTEND Obstetrics & Gynecology
DX: N93.9 Abnormal uterine and vaginal bleeding, unspecified (principal); R93.89 Abnormal findings on diagnostic imaging of other specified body structures; K21.9 Gastro-esophageal reflux disease without esophagitis; G43.909 Migraine, unspecified, not intractable, without status migrainosus; M06.9 Rheumatoid arthritis, unspecified; Z90.89 Acquired absence of other organs; Z79.899 Other long term (current) drug therapy; Z88.1 Allergy status to other antibiotic agents; Z88.8 Allergy status to other drugs, medicaments and biological substances; Z98.51 Tubal ligation status; Z90.721 Acquired absence of ovaries, unilateral; Z82.49 Family history of ischemic heart disease and other diseases of the circulatory system
CPT/HCPCS: 36415; 84703; 85025; 86850; 86900; 86901; 87081; 88305

== ENCOUNTER 2021-11-04 11:01 | Outpatient (CLI) | payer OTHER ==
[~2021-11-04] VITALS: Ht 165.1 cm; Wt 69.1 kg
[2021-11-04] MEDS ORDERED: diphenhydrAMINE 50 MG/ML INJ (BENADRYL) IV PRN (11:45)
[2021-11-04] MEDS ORDERED: EPINEPHrine INJECTION 1 MG/ML AMP IM PRN (11:45)
[2021-11-04] MEDS ORDERED: BAMLANIVIMAB 700 MG/ETESEVIMAB 1,400 MG IN NS IV ONE ×3 (11:45)
[2021-11-04] MEDS ORDERED: ACETAMINOPHEN 500 MG TAB (TYLENOL) PO PRN (11:45)
[2021-11-04] MEDS ORDERED: ONDANSETRON 4 MG/2 ML (SDV) Z0FRAN IV PRN (11:45)
[2021-11-04 12:14] VITALS: BP 131/85
== END 2021-11-04 13:22 | disposition home or self-care (01) ==
LOC: INFUSION 11:01
PROVIDERS: ATTEND Nurse Practitioner Family
DX: U07.1 COVID-19 (principal)

== ENCOUNTER → 2022-05-24 | Outpatient (CLI) | payer OTHER ==
--- NOTE | 2022-05-24 11:36 | Diagnostic Imaging Report ---
PROCEDURE: Pelvic comp/transvaginal sonogram. TECHNIQUE: Complete transabdominal and transvaginal pelvic ultrasound was performed. In addition, limited pelvic Doppler was performed. INDICATION: Pelvic and perineal pain. Uterus is anteverted measuring 10.1 x 5.5 x 6.0 cm. Endometrium is approximately 10 mm in thickness. There is a small myometrial cyst adjacent to the endometrium in the posterior mid uterus measuring 7 mm x 5 mm. Hypoechoic solid-appearing mass adjacent to this measures 1.3 x 0.9 x 0.9 smears and likely represents a fibroid. Right ovary is surgically absent. Left ovary measures 4.3 x 2.3 x 3.8 cm. Left ovary does contain at least 2 cysts, largest 3.0 x 2.0 x 2.1 cm. There is blood flow to left ovary. No free fluid is seen. IMPRESSION: 1. Uterine fibroid and myometrial cysts. 2. 3 cm left ovarian cyst. Dictated by: Dictated on workstation # [id number]
== END ==
LOC: RAD 10:00
PROVIDERS: ATTEND Obstetrics & Gynecology
DX: N85.8 Other specified noninflammatory disorders of uterus (principal); N83.202 Unspecified ovarian cyst, left side
CPT/HCPCS: 76830; 76856

== ENCOUNTER → 2022-06-26 | Outpatient (CLI) | payer OTHER ==
--- NOTE | 2022-06-26 14:46 | Diagnostic Imaging Report ---
INDICATION: Right breast pain and clear nipple discharge. Patient also has a known right breast nodule. Sonographic interrogation of area the patient's pain was performed. No sonographic abnormality is seen. Retroareolar regions unremarkable as well. There is a hypoechoic circumscribed nodule at the 9:00 location of the right breast measuring 12 mm x 7 mm x 9 mm, stable when compared with outside study from 09/27/2021. This again is wider than it is tall and appears to be macrolobulated suggestive of a fibroadenoma. No other breast masses are seen. IMPRESSION: BI-RADS Category 3 Findings suggestive of fibroadenoma at the 9:00 location, stable when compared with outside study from 09/27/2021. Sonographic follow-up in 6 months is recommended show continued stability. ACR BI-RADS Category 3: Probably benign findings. Dictated by: Dictated on workstation # [id number]
--- NOTE | 2022-06-26 17:32 | Diagnostic Imaging Report ---
Indication: Right breast pain and clear nipple discharge. Correlation is made with prior mammogram from 09/23/2021. 2-D and 3-D bilateral diagnostic mammography was performed with CAD. Both breasts are heterogeneously dense, limiting the sensitivity of mammography. The circumscribed lobulated nodule upper outer right breast at mid to posterior depth appears stable. No new masses are seen. No malignant-appearing microcalcifications are identified. Axillae are unremarkable. IMPRESSION: BI-RADS Category 0 Stable circumscribed lobulated nodule in the upper outer right breast. Even so, ultrasound of this nodule is recommended to show continued stability compared with outside study. In addition, ultrasound of the area of patient's pain in the right breast as well as the retroareolar right breast is recommended and will be performed today. Dictated by: Dictated on workstation # [id number]
== END ==
LOC: RAD 13:45
PROVIDERS: ATTEND Obstetrics & Gynecology
DX: N63.11 Unspecified lump in the right breast, upper outer quadrant (principal); N64.4 Mastodynia; N64.52 Nipple discharge
CPT/HCPCS: 76641; 77066; G0279; 77062

== ENCOUNTER 2022-07-03 05:29 | Outpatient (CLI) | payer OTHER ==
[~2022-07-03] VITALS: Ht 165 cm; Wt 72.1 kg
== END 2022-07-04 10:47 | disposition home or self-care (01) ==
LOC: PREOP 05:29
PROVIDERS: ATTEND Obstetrics & Gynecology
DX: Z01.818 Encounter for other preprocedural examination (principal)

== ENCOUNTER 2022-07-10 08:05 | Day surgery (SDC) | payer OTHER ==
[~2022-07-10] VITALS: Ht 165.1 cm; Wt 72.1 kg
[2022-07-10] VITALS (12 sets, daily range): BP systolic 101–120; BP diastolic 63–78
[2022-07-10] MEDS ORDERED: BUPIVACAINE 0.25% 30 ML (SENSORCAINE) VIAL ONE (08:08)
[2022-07-10] MEDS ORDERED: LACTATED RINGERS 1,000 ML IV PRN (08:15)
--- NOTE | 2022-07-10 08:41 | Progress Note-Pre Operative ---
Pre-Operative Progress Note Date of Available H&P: Jul 10, 2022 Date H&P Reviewed: Jul 10, 2022 Time H&P Reviewed: 08:40 History & Physical: H&P Reviewed Pre-Operative Diagnosis: Thickened endometrium, PMB, Cystic structure on US in endometrium GABRIELA HENSON DO Jul 10, 2022 08:41
[2022-07-10] MEDS ORDERED: ONDANSETRON 4 MG/2 ML (SDV) Z0FRAN IVP PRN ×2 (08:45→10:15)
[2022-07-10] MEDS ORDERED: KETOROLAC 30 MG/ML VIAL IVP ONE (08:45)
[2022-07-10] MEDS ORDERED: D5 LR IV SOLUTION 1,000 ML IV SCH (08:45)
[2022-07-10] MEDS ORDERED: HYDROcodone/APAP 5 MG/325 MG (LORTAB) TAB PO PRN (08:45)
[2022-07-10 09:09] LABS: BASOPHILS # (AUTO) 0.1 10^3/uL (0.0-0.1); BASOPHILS % (AUTO) 1 % (0-10); EOSINOPHILS # (AUTO) 0.2 10^3/uL (0.0-0.3); EOSINOPHILS % (AUTO) 4 % (0-10); HEMATOCRIT 40 % (35-52); HEMOGLOBIN 13.5 g/dL (11.5-16.0); LYMPHOCYTES % (AUTO) 31 % (12-44); MEAN CORPUSCULAR HEMOGLOBIN 30 pg (25-34); MEAN CORPUSCULAR HGB CONC 34 g/dL (32-36); MEAN CORPUSCULAR VOLUME 90 fL (80-99); MEAN PLATELET VOLUME 10.9 fL (9.0-12.2); MONOCYTES # (AUTO) 0.7 10^3/uL (0.0-1.0); MONOCYTES % (AUTO) 11 % (0-12); NEUTROPHILS # (AUTO) 3.5 10^3/uL (1.8-7.8); NEUTROPHILS % (AUTO) 54 % (42-75); PLATELET COUNT 264 10^3/uL (130-400); WHITE BLOOD COUNT 6.5 10^3/uL (4.3-11.0)
[2022-07-10] MEDS ORDERED: MIDAZOLAM 2 MG/2 ML (VERSED) VIAL ONE (09:31)
[2022-07-10] MEDS ORDERED: fentaNYL INJ 100 MCG/2 ML AMP ONE (09:31)
[2022-07-10 09:45] LABS: BASOPHILS % (MANUAL) 0 %; EOSINOPHILS % (MANUAL) 4 %; LYMPHOCYTES % (MANUAL) 35 %; MONOCYTES % (MANUAL) 8 %; NEUTROPHILS % (MANUAL) 53 %; RBC MORPH NORMAL
[2022-07-10] MEDS ORDERED: proPOfol 200 MG/20 ML (DIPRIVAN) VIAL IV ONE (09:59)
[2022-07-10] MEDS ORDERED: SEVOFLURANE (ULTANE) 15 ML INHAL SOLN ONE (09:59)
[2022-07-10] MEDS ORDERED: ONDANSETRON 4 MG/2 ML (SDV) Z0FRAN ONE (09:59)
[2022-07-10] MEDS ORDERED: LIDOCAINE PF 2% 5 ML (XYLOCAINE) VIAL ONE (09:59)
--- NOTE | 2022-07-10 10:15 | Anesthesia-General Post-Op ---
General Patient Condition Mental Status/LOC: Same as Preop Cardiovascular: Satisfactory Nausea/Vomiting: Absent Respiratory: Satisfactory Pain: Controlled Complications: Absent Post Op Complications Complications None Follow Up Care/Instructions Patient Instructions None needed. Anesthesia/Patient Condition Patient Condition Patient is doing well, no complaints, stable vital signs, no apparent adverse anesthesia problems. No complications reported per nursing. BONITA REECE CRNA Jul 10, 2022 10:14
--- NOTE | 2022-07-10 10:23 | History & Physical-Surgical ---
HPO-Surgical History of Present Illness Chief Complaint: AUB Diagnosis/Surgical Indication: Thickened endometrium, PMB, Cystic structure on US in endometrium Procedure: DILATION AND CURETTAGE Date of Surgery: Jul 10, 2022 Weight (Pounds): 148 Weight (Ounces): 0.0 Height (Feet): 5 Height (Inches): 4.50 Allergies and Home Medications Allergies Coded Allergies: cephalexin (Verified Allergy, Severe, ANAPHYLAXIS, 08/20/17) amoxicillin (Verified Allergy, Intermediate, RASH, 08/20/17) erythromycin base (Verified Allergy, Intermediate, N/V, 08/20/17) Patient Home Medication List Home Medication List Reviewed: Yes Ibuprofen (Ibuprofen) 600 Mg Tablet, 600 MG PO Q6H Prescribed by: GABRIELA HENSON on 02/28/21 08 Last Action: Reviewed Pantoprazole Sodium (Protonix) 40 Mg Tablet.dr, 40 MG PO DAILY, (Reported) Entered as Reported by: LYLE CAMPOS on 08/20/17 104 Last Action: Reviewed Discontinued Medications Hydrocodone/Acetaminophen (Hydrocodone-Acetamin 5-325 mg) 1 Each Tablet, 1 TAB PO Q4H PRN for PAIN-MODERATE (5-7) Discontinued Reason: No Longer Taking Prescribed by: GABRIELA HENSON on 02/28/21845 Past Dedzeij-Wzpxfl-Slmgra Hx Patient Social History Smoking Status: Never a Smoker 2nd Hand Smoke Exposure: No Recent Hopitalizations: No Seasonal Allergies Seasonal Allergies: Yes (MILD) Surgeries Yes (R SHOULDER, HEMORRHOIDECTOMY, R SALPINGO-OOPORECTOMY;R BREAST BX,D&C) Appendectomy, Breast, Oophorectomy, Orthopedic, Rectal, Tubal Ligation Respiratory No Cardiovascular No Irregular Heartbeat Neurological Yes Headaches /Migraines Reproductive System Hx Reproductive Disorders: Yes (R SALPINGO-OOPHORECTOMY) Sexually Transmitted Disease: No HIV/AIDS: No Female Reproductive Disorders: Menstrual Problems, 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, Ovarian Cyst 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 Genitourinary No Gastrointestinal Yes Gastroesophageal Reflux, Chronic Constipation, Hemorrhoids, Hiatal Hernia Musculoskeletal Yes (R SHOULDER SURGERY) Arthritis, Chronic Back Pain Endocrine History of Endocrine Disorders: No HEENT History of HEENT Disorders: No Loss of Vision: Bilateral Hearing Impairment: Denies Cancer No Psychosocial History of Psychiatric Problem: No Integumentary History of Skin or Integumenta: No Blood Transfusions History of Blood Disorders: No Adverse Reaction to a Blood Tr: No Exam Vital Signs Vital Signs 07/10/22 08:13 Temp 36.5 Pulse 63 Resp 18 B/P (MAP) 120/78 (92) Pulse Ox 98 O2 Delivery Room Air Capillary Refill : Labs Laboratory Tests Test 07/10/22 08:55 Range/Units White Blood Count 6.5 4.3-11.0 10^3/uL Red Blood Count 4.45 3.80-5.11 10^6/uL Hemoglobin 13.5 11.5-16.0 g/dL Hematocrit 40 35-52 % Mean Corpuscular Volume 90 80-99 fL Mean Corpuscular Hemoglobin 30 25-34 pg Mean Corpuscular Hemoglobin Concent 34 32-36 g/dL Red Cell Distribution Width 12.6 10.0-14.5 % Platelet Count 264 130-400 10^3/uL Mean Platelet Volume 10.9 9.0-12.2 fL Immature Granulocyte % (Auto) 0 % Neutrophils (%) (Auto) 54 42-75 % Lymphocytes (%) (Auto) 31 12-44 % Monocytes (%) (Auto) 11 0-12 % Eosinophils (%) (Auto) 4 0-10 % Basophils (%) (Auto) 1 0-10 % Neutrophils # (Auto) 3.5 1.8-7.8 10^3/uL Lymphocytes # (Auto) 2.0 1.0-4.0 10^3/uL Monocytes # (Auto) 0.7 0.0-1.0 10^3/uL Eosinophils # (Auto) 0.2 0.0-0.3 10^3/uL Basophils # (Auto) 0.1 0.0-0.1 10^3/uL Immature Granulocyte # (Auto) 0.0 0.0-0.1 10^3/uL Neutrophils % (Manual) 53 % Lymphocytes % (Manual) 35 % Monocytes % (Manual) 8 % Eosinophils % (Manual) 4 % Basophils % (Manual) 0 % Blood Morphology Comment NORMAL General Appearance: Alert, Oriented X3 HEENT: Atraumatic, PERRLA Respiratory: Clear to Auscultation Cardiovascular: Regular Rate Abdominal: Normal Bowel Sounds Psych/Mental Status: Mental Status NL Assessment/Plan Admission Diagnosis Diagnosis: AUB PMB Thickened endometrium Plan: D and C Admission Status: Other (Same Day Surgery) GABRIELA HENSON DO Jul 10, 2022 10:23
[2022-07-10] MEDS: fentaNYL INJ 100 MCG/2 ML AMP IVP ONE (10:45)
--- NOTE | 2022-07-10 13:53 | OPERATIVE REPORT ---
DATE OF SERVICE: PREOPERATIVE DIAGNOSES: 1. A 51-year-old female with postmenopausal bleeding. 2. Thickened endometrium on ultrasound. POSTOPERATIVE DIAGNOSES: 1. A 51-year-old female with postmenopausal bleeding. 2. Thickened endometrium on ultrasound. PROCEDURE: D and C. SURGEON: Gabriela Henson DO ANESTHESIA: LMA general. ESTIMATED BLOOD LOSS: Minimal. URINE OUTPUT: 50 mL drained at the start of the procedure. FLUIDS: 800 mL lactated Ringer's solution. FINDINGS: A moderate amount of endometrial curettings. Grossly normal-appearing external female genitalia, grossly normal-appearing cervix. SPECIMEN SENT: Endometrial curettings. INDICATIONS FOR PROCEDURE: This 51-year-old female is a patient, who came to my office with ongoing issues with postmenopausal bleeding. This has been addressed about a year earlier and a D and C performed, showed benign pathology; however, the patient continued to have this bleeding and ultrasound revealed a cystic structure in the endometrium as well. I discussed with the patient need for endometrial sampling. Risks of procedure were discussed with the patient in detail. We decided to proceed with D and C. After all of her questions were answered, consent was obtained, the patient was taken to the operating room. OPERATIVE REPORT IN DETAIL: Once in the operating room, general anesthesia was found to be adequate. She was placed in dorsal lithotomy position, prepped and draped in normal sterile fashion. A weighted speculum was inserted to the patient's vagina. Right angle retractor was used to visualize the cervix. It was grasped at 12 o'clock position using a long Allis clamp. I then performed paracervical block at 3 and 9 o'clock positions on the cervix. Care was taken to aspirate for injecting 5 mL of 0.25% Marcaine injected into each site. I then gently sound the uterine cavity, depth was found to be 8 cm. I then gently dilated the cervix using Hanks dilators to maximum dilatation approximately 1 cm, at which point I performed a gentle curettage using endometrial curette and collect all the endometrial tissue and sending as endometrial curettings. I then removed all the instruments from the patient's vagina. The patient tolerated the procedure well and sent to recovery area in stable condition. Lap and sponge counts were correct at the end of the procedure. Instrument counts correct as well. Job ID: [id number] DocumentID: [id number] Dictated Date: 07/10/2022 10:22:03 Digital Cartographer Date: 07/10/2022 13:52:58 Dictated By: GABRIELA HENSON DO
== END 2022-07-10 12:45 | disposition home or self-care (01) ==
LOC: SDC 08:05
PROVIDERS: ATTEND Obstetrics & Gynecology
DX: N85.8 Other specified noninflammatory disorders of uterus (principal); N95.0 Postmenopausal bleeding; N91.1 Secondary amenorrhea; R93.89 Abnormal findings on diagnostic imaging of other specified body structures; Z98.51 Tubal ligation status; Z90.722 Acquired absence of ovaries, bilateral
CPT/HCPCS: 36415; 84703; 85007; 85027; 86850; 86900; 86901; 87081

== ENCOUNTER 2022-08-21 05:30 | Outpatient (CLI) | payer OTHER ==
[~2022-08-21] VITALS: Ht 165.1 cm; Wt 72.6 kg
== END 2022-08-21 12:50 ==
LOC: PREOP 05:30
PROVIDERS: ATTEND Obstetrics & Gynecology
DX: Z01.818 Encounter for other preprocedural examination (principal); N93.9 Abnormal uterine and vaginal bleeding, unspecified

== ENCOUNTER 2022-08-28 09:08 | Day surgery (SDC) | payer OTHER ==
[~2022-08-28] VITALS: Ht 165 cm; Wt 72.6 kg
[2022-08-28] VITALS (12 sets, daily range): BP systolic 97–129; BP diastolic 55–85
--- NOTE | 2022-08-28 09:24 | History & Physical-Surgical ---
HPO-Surgical History of Present Illness Chief Complaint: Recurrent PMB Diagnosis/Surgical Indication: ABNORMAL UTERINE BLEEDING Procedure: ratlh with bso Date of Surgery: Aug 28, 2022 Weight (Pounds): 148 Weight (Ounces): 0.0 Height (Feet): 5 Height (Inches): 4.50 Allergies and Home Medications Allergies Coded Allergies: cephalexin (Verified Allergy, Severe, ANAPHYLAXIS, 08/21/22) amoxicillin (Verified Allergy, Intermediate, RASH, 08/21/22) erythromycin base (Verified Allergy, Intermediate, N/V, 08/21/22) Patient Home Medication List Home Medication List Reviewed: Yes Ibuprofen (Ibuprofen) 600 Mg Tablet, 600 MG PO Q6H Prescribed by: GABRIELA HENSON on 02/28/21 0846 Pantoprazole Sodium (Protonix) 40 Mg Tablet.dr, 40 MG PO DAILY, (Reported) Entered as Reported by: LYLE CAMPOS on 08/20/17 1042 Past Ryqzxme-Zjaxbm-Gcxwvq Hx Patient Social History 2nd Hand Smoke Exposure: Yes (MOTHER PREVIOUSLY) Recent Hopitalizations: No Seasonal Allergies Seasonal Allergies: Yes (MILD) Surgeries Yes (R SHOULDER, HEMORRHOIDECTOMY, R SALPINGO-OOPORECTOMY;R BREAST BX,D&C) Appendectomy, Breast, Oophorectomy, Orthopedic, Rectal, Tubal Ligation Respiratory No Currently Using CPAP: No Currently Using BIPAP: No Cardiovascular No Irregular Heartbeat Neurological Yes Headaches /Migraines Reproductive System Hx Reproductive Disorders: Yes (R SALPINGO-OOPHORECTOMY) Sexually Transmitted Disease: No HIV/AIDS: No Female Reproductive Disorders: Menstrual Problems, 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, Ovarian 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 Genitourinary Yes Bladder Infection Gastrointestinal Yes Gastroesophageal Reflux, Chronic Constipation, Hemorrhoids, Hiatal Hernia Musculoskeletal Yes (R SHOULDER SURGERY, BURSITIS) Arthritis, Chronic Back Pain Endocrine History of Endocrine Disorders: No HEENT History of HEENT Disorders: No Loss of Vision: Bilateral Hearing Impairment: Denies Cancer No Psychosocial History of Psychiatric Problem: No Integumentary History of Skin or Integumenta: No Blood Transfusions History of Blood Disorders: No Adverse Reaction to a Blood Tr: No Exam Vital Signs Capillary Refill : General Appearance: Alert, Oriented X3 HEENT: Atraumatic Respiratory: Clear to Auscultation Cardiovascular: Regular Rate Neuro: Normal Gait Psych/Mental Status: Mental Status NL Assessment/Plan Assessment and Plan Diagnosis: 52 yo female with AUB Recurrent PMB P: RATLH w/ BSO Admission Diagnosis Admission Status: Other (Same Day Surgery) GABRIELA HENSON DO Aug 28, 2022 09:24
[2022-08-28] MEDS ORDERED: BUPIVACAINE 0.25% 30 ML (SENSORCAINE) VIAL ONE (09:39)
[2022-08-28] MEDS ORDERED: metroNIDAZOLE 500MG/100ML IVPB 100 ML ONE (09:41)
[2022-08-28] MEDS: LACTATED RINGERS 1,000 ML IV PRN ×3 (09:44→18:44)
[2022-08-28] MEDS ORDERED: CLINDAMYCIN 900 MG/50 ML IVPB 50 ML IV ONE (09:45)
[2022-08-28] MEDS ORDERED: metroNIDAZOLE 500MG/100ML IVPB 100 ML IV ONE (09:45)
[2022-08-28 10:11] LABS: BASOPHILS # (AUTO) 0.1 10^3/uL (0.0-0.1); BASOPHILS % (AUTO) 1 % (0-10); EOSINOPHILS # (AUTO) 0.3 10^3/uL (0.0-0.3); EOSINOPHILS % (AUTO) 6 % (0-10); HEMATOCRIT 43 % (35-52); HEMOGLOBIN 14.3 g/dL (11.5-16.0); LYMPHOCYTES # (AUTO) 2.3 10^3/uL (1.0-4.0); LYMPHOCYTES % (AUTO) 41 % (12-44); MEAN CORPUSCULAR HEMOGLOBIN 30 pg (25-34); MEAN CORPUSCULAR HGB CONC 33 g/dL (32-36); MEAN CORPUSCULAR VOLUME 91 fL (80-99); MONOCYTES # (AUTO) 0.5 10^3/uL (0.0-1.0); MONOCYTES % (AUTO) 10 % (0-12); NEUTROPHILS # (AUTO) 2.4 10^3/uL (1.8-7.8); NEUTROPHILS % (AUTO) 42 % (42-75); PLATELET COUNT 367 10^3/uL (130-400); WHITE BLOOD COUNT 5.6 10^3/uL (4.3-11.0)
[2022-08-28] MEDS ORDERED: GLYCOPYRROLATE 0.2 MG/ML (ROBINUL) 2 ML VIAL ONE (10:39)
[2022-08-28] MEDS ORDERED: NEOSTIGMINE 3 MG/3 ML VIAL ONE (10:39)
[2022-08-28] MEDS ORDERED: ROCURONIUM 10 MG/ML 5 ML SYRINGE IV ONE (10:39)
[2022-08-28] MEDS ORDERED: ONDANSETRON 4 MG/2 ML (SDV) Z0FRAN ONE (10:39)
[2022-08-28] MEDS ORDERED: fentaNYL INJ 100 MCG/2 ML AMP ONE (10:39)
[2022-08-28] MEDS ORDERED: LIDOCAINE PF 2% 5 ML (XYLOCAINE) VIAL ONE (10:39)
[2022-08-28] MEDS ORDERED: MIDAZOLAM 2 MG/2 ML (VERSED) VIAL ONE (10:39)
[2022-08-28] MEDS ORDERED: proPOfol 200 MG/20 ML (DIPRIVAN) VIAL IV ONE (10:39)
[2022-08-28] MEDS ORDERED: PHENYLEPHRINE 100 MCG/ML 10 ML (ANESTHESIA) SYR ONE (11:09)
--- NOTE | 2022-08-28 11:11 | Discharge Inst-Women's Service ---
Discharge Inst-Women's Serv Depart Medication/Instructions New, Converted or Re-Newed RX: Transmitted to Pharmacy Problems Reviewed?: Yes Consults/Follow Up Additional Follow Up: Yes Activity Activity: Activity as Tolerated Driving Instructions: No Driving for 1 Week NO SMOKING: NO SMOKING Nothing Inside Vagina: No Douching, No Essig, No Tampons Diet Discharge Diet: No Restrictions Symptoms to Report to : Bleeding Excessive, Pain Increased, Fever Over 101 Degrees F, Vaginal Bleeding Increase, Questions/Concerns For Any Problems or Questions: Contact Your Physician Skin/Wound Care Infection Signs and Symptoms: Increased Redness, Foul Odor of Wound, Increased Drainage, Skin Itchy or Has a Rash, Increased Swelling, Temperature Above 101 F Operative Area Clean and Dry: Keep Incision Clean/Dry Stitches/[place]/Dermabond: Dermabond, Care of Stitches Bathing Instructions: GABRIELA Gilliam DO Aug 28, 2022 11:11
[2022-08-28] MEDS ORDERED: HYDR-34 PO (11:13)
[2022-08-28] MEDS ORDERED: DOCU100C37 PO (11:13)
[2022-08-28] MEDS ORDERED: IBUP-844 PO (11:13)
[2022-08-28] MEDS ORDERED: SIME80TA16 PO (11:13)
[2022-08-28] MEDS ORDERED: ZOLPIDEM 5 MG (AMBIEN) TAB PO PRN (11:15)
[2022-08-28] MEDS ORDERED: DOCUSATE SODIUM 100 MG (COLACE) CAP PO PRN (11:15)
[2022-08-28] MEDS ORDERED: IBUPROFEN 600 MG (MOTRIN) TAB PO PRN (11:15)
[2022-08-28] MEDS ORDERED: SIMETHICONE 80 MG (MYLICON) CHEW PO PRN (11:15)
[2022-08-28] MEDS ORDERED: ANTACID SUSP 30 ML UDC (MYLANTA) PO PRN (11:15)
[2022-08-28] MEDS ORDERED: ONDANSETRON 4 MG/2 ML (SDV) Z0FRAN IV PRN (11:15)
[2022-08-28] MEDS ORDERED: HYDROcodone/APAP 7.5 MG/325 MG (LORTAB, LORCET PLUS) TABLET PO PRN (11:15)
[2022-08-28] MEDS ORDERED: CEPACOL SORE THROAT-COUGH LOZENGE MM PRN (11:15)
[2022-08-28] MEDS ORDERED: SEVOFLURANE (ULTANE) 15 ML INHAL SOLN ONE (12:22)
[2022-08-28] MEDS ORDERED: HYDROmorphone 2 MG/ML VIAL (DILAUDID) IV ONE (12:30)
[2022-08-28] MEDS ORDERED: ONDANSETRON 4 MG/2 ML (SDV) Z0FRAN IVP PRN (12:30)
[2022-08-28] MEDS ORDERED: morphine INJ 10 MG/ML 1ML (SYR OR VIAL) IVP ONE (12:30)
[2022-08-28] MEDS ORDERED: HYDROmorphone 2 MG/ML VIAL (DILAUDID) ONE (12:36)
[2022-08-28] MEDS: LACTATED RINGERS 1,000 ML IV SCH ×2 (13:38→19:15)
[2022-08-28] MEDS: KETOROLAC 30 MG/ML VIAL IVP PRN ×2 (14:12→19:51)
--- NOTE | 2022-08-28 15:19 | Anesthesia-General Post-Op ---
General Patient Condition Mental Status/LOC: Same as Preop Cardiovascular: Satisfactory Nausea/Vomiting: Absent Respiratory: Satisfactory Pain: Controlled Complications: Absent Post Op Complications Complications None Follow Up Care/Instructions Patient Instructions None needed. Anesthesia/Patient Condition Patient Condition Patient was doing well earlier in PACU with no complaints, stable vital signs, no apparent adverse anesthesia problems. No complications reported per nursing. ASHLYN DE LA TORRE DO Aug 28, 2022 15:19
--- NOTE | 2022-08-28 21:25 | OPERATIVE REPORT ---
DATE OF SERVICE: PREOPERATIVE DIAGNOSES: 1. A 52-year-old female with abnormal uterine bleeding. 2. Recurrent postmenopausal bleeding. POSTOPERATIVE DIAGNOSES: 1. A 52-year-old female with abnormal uterine bleeding. 2. Recurrent postmenopausal bleeding. PROCEDURE: Robotic-assisted total laparoscopic hysterectomy with left salpingo-oophorectomy. SURGEON: Ace Henson DO ANESTHESIA: General endotracheal. ESTIMATED BLOOD LOSS: Minimal. URINE OUTPUT: 200 mL clear urine at the end of procedure. FLUIDS: 1800 mL lactated Ringer's solution. FINDINGS: A slightly enlarged hyperemic appearing uterus, grossly normal appearing left tube and ovary, absent right tube and ovary. SPECIMEN SENT: Uterus, cervix, left tube and ovary. INDICATIONS FOR PROCEDURE: This 52-year-old female is a patient who had sought care in my office for greater than the last 5 years. She keeps having these recurrent episodes of postmenopausal bleeding. Each time undergoing ultrasound evaluation and sampling, which is found to be normal. Her most recent episode occurred this summer and she had a D and C in June, which revealed normal pathology. The patient has concerns of this becoming an ongoing issue and also has a concern with the family history of uterine cancer. This will alarm her every time this occurs. She wishes to proceed with more definitive measures for this treatment and does not want to do anything conservative as she is afraid it may mask an ongoing malignancy issue. Risks of the procedure were discussed with the patient in detail including risk of bleeding, infection, damage to surrounding structures including, but not limited to bowel, bladder, ureter, kidneys, possible need for reoperation, postoperative complications that may occur, recovery timeframe, risk from anesthesia and . After everything was discussed with the patient in detail, consent was obtained, the patient was taken to the operating room. OPERATIVE REPORT IN DETAIL: Once in the operating room, general anesthesia was found to be adequate, she was placed in dorsal lithotomy position, prepped and draped in normal sterile fashion. Timeout was performed. Luque catheter was placed using sterile technique. A weighted speculum inserted to the patient's vagina. Right angle retractor was used to visualize the cervix, which was grasped at 12 o'clock position using a long Allis clamp. An 0 Vicryl suture was then placed in anterior lip of the cervix, which is used as my retraction point. I then gently sound the uterine cavity, depth was found to be 8 cm. I selected an 8 cm Janee uterine manipulator tip and a 3.5 cm colpotomy ring. The manipulator tip was advanced to the uterus. Balloon was deployed. The colpotomy ring was advanced around the vaginal fornix. This allows for excellent uterine manipulation on bimanual examination. I then removed all the instruments from the patient's vagina, performed change of gloves, turned my attention to the abdomen, where subcostally at the midclavicular line on the left side, I introduced the Veress needle until intraperitoneal placement confirmed using saline drop test. An opening pressure of 5 mmHg was noted. I proceeded to maximum pressure of 15 mmHg using CO2 gas, at which point, I made an infraumbilical incision at 8 mm with a knife and directed a blunt laparoscopic da Matty camera trocar through the incision until intraperitoneal placement was confirmed using laparoscope. There was no evidence of damage upon my entry site of the trocar. There was no evidence of damage upon the entry site of the Veress. The Veress was then removed at that point. I then had the patient placed in steep Trendelenburg where I am able to visualize all my pelvic anatomy as defined in my findings above. I placed two lateral trocars using both 8 mm trocars that are approximately 8 to 10 cm lateral to my infraumbilical trocar. Once both these are in place, I bring in the da Matty robot and docked in appropriate fashion using the SynchroSeal device in left hand and the monopolar nilda in the right hand. I performed the following dissection on the left side. Starting at the IP ligament, I sealed and transected using the SynchroSeal device. I then grasped the round ligament, which I sealed and transected using the SynchroSeal device. I then grasped the entire broad ligament, which I sealed and transected using the SynchroSeal device down to the level of the lower uterine segment, at which point I the anterior and posterior leaflets of the broad ligament. Anterior leaflet dissection was taken around the anterior vaginal fornix and posterior leaflets taken around the posterior vaginal fornix. This allows me to skeletonize the uterine vessels laterally, which I sealed and transected using the SynchroSeal device. On the right side, I grasped the round ligament, which I sealed and transected using SynchroSeal device. The right tube and ovary are missing. Therefore, I took my dissection down to the lower uterine segment, at which point I the anterior and posterior leaflets of the broad ligament. Anterior leaflet was taken around the anterior vaginal fornix. The posterior leaflet was taken around to the posterior vaginal fornix. This allows me to skeletonize the uterine vessels laterally, which I sealed and transected using the SynchroSeal device. I then created a colpotomy at 12 o'clock position using monopolar nilda and took this circumferentially around the vaginal fornix amputating the cervix away from the vagina. The entire specimen was then removed through the vagina. I then closed the vaginal cuff using 2-0 V-Loc in a running fashion, after which there was no active bleeding noted from any of my dissection planes. I then undocked the da Matty robot and proceeded with remainder of the case laparoscopically. I then copiously irrigated the pelvis using normal saline. Once again, there was no active bleeding noted from any of my dissection planes. I placed Surgiflo hemostatic agent over all my planes of dissection. I had the patient taken out of steep Trendelenburg where I removed the lateral trocars under direct visualization of the laparoscope. The infraumbilical trocars left in place to release insufflation and to introduce 10 mL of 0.25% Marcaine in peritoneal cavity for postoperative pain management. I then removed this trocar as well. The skin reapproximated using 4-0 Monocryl in interrupted subcuticular stitches. Dermabond was applied to the incisions and Band-Aids were placed over the incisions as well. The patient tolerated the procedure well and sent to recovery area in stable condition. Lap and sponge counts were correct at the end of the procedure. Instrument counts correct as well. A 900 mg of clindamycin and 500 mg of Flagyl were given preoperatively for infection prophylaxis. Job ID: [id number] DocumentID: [id number] Dictated Date: 08/28/2022 12:34:16 Section Supervisor Date: 08/28/2022 21:24:20 Dictated By: ACE HENSON DO
[2022-08-29 00:51] VITALS: BP 10/55
[2022-08-29] MEDS: KETOROLAC 30 MG/ML VIAL IVP PRN ×2 (00:51→06:13)
[2022-08-29 08:00] VITALS: BP 97/67
== END 2022-08-29 08:55 | disposition home or self-care (01) ==
LOC: SDC 09:08 → WS 12:44 → SDC 08-29 08:55
PROVIDERS: ATTEND Obstetrics & Gynecology
DX: D25.1 Intramural leiomyoma of uterus (principal); N94.89 Other specified conditions associated with female genital organs and menstrual cycle; N83.202 Unspecified ovarian cyst, left side
CPT/HCPCS: 36415; 84703; 85025; 86850; 86900; 86901; 87081; 94664